=== PATIENT | male | born 1940 | race Caucasian/White ===

== ENCOUNTER → 2017-10-12 | Outpatient (CLI) | payer MEDICARE, OTHER ==
[~2017-10-12] VITALS: Ht 180.3 cm; Wt 90.7 kg
[~2017-10-12] MED LIST: albuterol 2.5 MG/3 ML nebule NEB ONE
[2017-10-12 13:06] LABS: TOTAL HEMOGLOBIN 14.6 G/dl (14.0-18.0)
== END ==
LOC: RT 12:26
PROVIDERS: ATTEND Internal Medicine Pulmonary Disease
DX: J44.9 Chronic obstructive pulmonary disease, unspecified (principal); R06.09 Other forms of dyspnea; F17.200 Nicotine dependence, unspecified, uncomplicated; Z90.2 Acquired absence of lung [part of]
CPT/HCPCS: 85018; 94060; 94640; 94727; 94729; 94760; A6449; J7030

== ENCOUNTER 2018-11-11 09:20 | Inpatient (IN) | payer MEDICARE, OTHER | END 2018-11-13 13:10 | disposition home or self-care (01) | LOC: ER 09:20 → ED HOLD 13:41 → PCU 3S 15:18 | DX: J96.21 Acute and chronic respiratory failure with hypoxia (principal); J44.1 Chronic obstructive pulmonary disease with (acute) exacerbation; I50.9 Heart failure, unspecified; J20.9 Acute bronchitis, unspecified ==

== ENCOUNTER 2020-02-27 08:00 | Outpatient (CLI) | payer MEDICARE, OTHER ==
[~2020-02-27 08:00] MED LIST changes: +ATOR10TA87 PO; +BUME1TAB8 PO; +CHOL400T32 PO; +FINA5TAB11 PO; +FLO0.4C PO; +HYDR-3965 PO; +LEVO100T PO; +METO25TA6 PO; +NITR0.4T51 SL; +POTA10TA36 PO; +RIVA20TA PO; -albuterol 2.5 MG/3 ML nebule NEB ONE
== END 2020-02-27 23:59 | disposition home or self-care (01) ==
LOC: RT 08:00
PROVIDERS: ATTEND Internal Medicine Pulmonary Disease
DX: R94.2 Abnormal results of pulmonary function studies (principal); J44.9 Chronic obstructive pulmonary disease, unspecified
CPT/HCPCS: 94010; 94618

== ENCOUNTER 2021-01-30 08:58 | Day surgery (SDC) | payer MEDICARE, OTHER ==
[~2021-01-30] VITALS: Ht 182.9 cm; Wt 92.7 kg
[2021-01-30] VITALS (7 sets, daily range): BP systolic 91–132; BP diastolic 47–88
[~2021-01-30 08:58] MED LIST changes: +LOP25T PO; -METO25TA6 PO
[2021-01-30] MEDS ORDERED: VANCOMYCIN 1,500MG inj. 1,500 MG in normal saline 500ml IV soln 500 ML IV ONE (09:20)
[2021-01-30 09:56] LABS: ALBUMIN 3.5 G/DL (3.4-5.0); ANION GAP 4 (8-16); BLOOD UREA NITROGEN 24 MG/DL (7-18); BUN/CREATININE RATIO 16.9 (5.4-32.0); CALCIUM 9.4 MG/DL (8.5-10.1); CHLORIDE 98 MMOL/L (99-107); CREATININE 1.42 MG/DL (0.60-1.10); GLUCOSE 108 MG/DL (70-104); MAGNESIUM 2.3 MG/DL (1.5-2.4); POTASSIUM 3.7 MMOL/L (3.5-5.1); SODIUM 135 MMOL/L (135-145); TOTAL CARBON DIOXIDE 33.3 MMOL/L (24-32); eGFR 48 ML/MIN
[2021-01-30 10:00] LABS: BASOPHILS % (AUTO) 0.7 % (0-1); EOSINOPHILS # (AUTO) 0.1 X10'3 (0-0.9); EOSINOPHILS % (AUTO) 2.2 % (0-6); HEMATOCRIT 31.9 % (42.0-52.0); HEMOGLOBIN 10.5 g/dl (14.0-17.9); LYMPHOCYTES # (AUTO) 0.9 X10'3 (1.1-4.8); LYMPHOCYTES % (AUTO) 13.7 % (21-51); MEAN CORPUSCULAR HEMOGLOBIN 28.4 PG (27.0-31.0); MEAN CORPUSCULAR HGB CONC 32.9 g/dL (33.0-36.5); MEAN CORPUSCULAR VOLUME 86.4 FL (78-98); MEAN PLATELET VOLUME 7.8 FL (7.4-10.4); MONOCYTES # (AUTO) 0.5 X10'3 (0-0.9); MONOCYTES % (AUTO) 7.5 % (2-12); NEUTROPHILS # (AUTO) 5.1 X10'3 (1.8-7.7); NEUTROPHILS % (AUTO) 75.9 % (42-75); PLATELET COUNT 218 X10'3 (140-440); RED BLOOD COUNT 3.69 X10'6 (4.70-6.10); RED CELL DISTRIBUTION WIDTH 14.7 % (11.5-14.5); WHITE BLOOD COUNT 6.7 X10'3 (4.5-11.0)
[2021-01-30] MEDS ORDERED: ATOR40TA PO (10:03)
[2021-01-30] MEDS ORDERED: BUME2TAB7 PO (10:03)
[2021-01-30] MEDS ORDERED: POTA20TA19 PO (10:03)
[2021-01-30] MEDS ORDERED: TIOT18CA3 INH (10:04)
[2021-01-30] MEDS ORDERED: BUDE10.2 INH (10:04)
[2021-01-30] MEDS ORDERED: ZAR2.5T PO (10:04)
[2021-01-30] MEDS ORDERED: ALB0.5UD IH (10:04)
[2021-01-30] MEDS ORDERED: OXYGEN NASALCANN (10:04)
[2021-01-30] MEDS ORDERED: fentaNYL/PF 50MCG/1 ML 2ML syringe ONE (11:32)
[2021-01-30] MEDS ORDERED: midazolam 1 mg/ML 2ml injection ONE (11:32)
[2021-01-30] MEDS ORDERED: LIDOcaine 1% W/epiNEPHrine 1:100,000 20ml vial ONE (11:32)
[2021-01-30] MEDS ORDERED: ceFAZolin 1000mg inj ONE (11:33)
[2021-01-30] MEDS ORDERED: LIDOCAINE 2% w/EPI 1:100:000 30mL injection MDV**cath lab 1 only ONE (11:37)
[2021-01-30] MEDS ORDERED: ceFAZolin 2gm in dextrose, iso 50 ML IV ONE (12:20)
[2021-01-30] MEDS ORDERED: HYDROcodone/acetaminophen 5mg/325mg tablet PO PRN (13:30)
[2021-01-30] MEDS ORDERED: HYDROcodone/acetaminophen 10/325mg tab PO PRN (13:30)
[2021-01-30] MEDS ORDERED: normal saline 1000ml 1,000 ML IV SCH (13:30)
== END 2021-01-30 15:15 | disposition home or self-care (01) ==
LOC: SSTAY O 08:58
PROVIDERS: ATTEND Internal Medicine Cardiovascular Disease
DX: Z45.010 Encounter for checking and testing of cardiac pacemaker pulse generator [battery] (principal); I49.5 Sick sinus syndrome; Z79.899 Other long term (current) drug therapy; I25.10 Atherosclerotic heart disease of native coronary artery without angina pectoris; I10 Essential (primary) hypertension; J44.9 Chronic obstructive pulmonary disease, unspecified; C34.91 Malignant neoplasm of unspecified part of right bronchus or lung
CPT/HCPCS: 33228; 36415; 80048; 83735; 85025; 85610; 93005; 99152; 99153; C1785; J0690; J2250; J3010; J3370; J7030; J7040; 33233; 33235; A4620; A6258

== ENCOUNTER → 2022-10-08 | Outpatient (CLI) | payer MEDICARE, OTHER ==
[~2022-10-08] VITALS: Ht 180.3 cm; Wt 84.4 kg
[~2022-10-08] MED LIST changes: +ALB0.5UD IH; -ATOR10TA87 PO; +ATOR40TA PO; +BUDE10.2 INH; -BUME1TAB8 PO; +BUME2TAB7 PO; +OXYGEN NASALCANN; +POTA-208 PO; -POTA10TA36 PO; +TIOT18CA3 INH; +ZAR2.5T PO; +albuterol 2.5 MG/3 ML nebule NEB PRN
== END | disposition home or self-care (01) ==
LOC: RT 10:52
PROVIDERS: ATTEND Internal Medicine
DX: R94.2 Abnormal results of pulmonary function studies (principal); J43.2 Centrilobular emphysema
CPT/HCPCS: 94060; 94727; 94729; 94760

== ENCOUNTER 2023-03-10 10:03 | Outpatient (CLI) | payer MEDICARE, OTHER ==
[~2023-03-10 10:03] MED LIST changes: -albuterol 2.5 MG/3 ML nebule NEB PRN
== END 2023-03-10 23:59 | disposition home or self-care (01) ==
LOC: RAD 10:03
PROVIDERS: ATTEND Internal Medicine
DX: R91.1 Solitary pulmonary nodule (principal); J43.2 Centrilobular emphysema; D35.02 Benign neoplasm of left adrenal gland; D35.01 Benign neoplasm of right adrenal gland; N62 Hypertrophy of breast; I70.0 Atherosclerosis of aorta; Z95.0 Presence of cardiac pacemaker; J84.10 Pulmonary fibrosis, unspecified; N28.1 Cyst of kidney, acquired; M47.814 Spondylosis without myelopathy or radiculopathy, thoracic region
CPT/HCPCS: 71250

== ENCOUNTER 2023-09-07 10:20 | Outpatient (CLI) | payer MEDICARE, OTHER | END 2023-09-07 23:59 | disposition home or self-care (01) | LOC: 64 CT 10:20 | PROVIDERS: ATTEND Internal Medicine | DX: R91.1 Solitary pulmonary nodule (principal); J43.9 Emphysema, unspecified; I25.10 Atherosclerotic heart disease of native coronary artery without angina pectoris; I70.0 Atherosclerosis of aorta; J98.11 Atelectasis; Z98.890 Other specified postprocedural states | CPT/HCPCS: 71250 ==